=== PATIENT | male | born 1950 | race Caucasian/White ===

== ENCOUNTER 2021-01-10 20:14 | Inpatient (IN) | payer MEDICARE, OTHER ==
[~2021-01-10] VITALS: Ht 182.9 cm; Wt 145.2 kg
[~2021-01-10 20:14] MED LIST: ALBU90OI INH; AMLO5; AMOCLA875; ASPI325; ASPI325 PO; ATEN100; ATEN100 PO; ATOR40TA; AZIT250 PO; Amlodipine Bes2.5 MG PO; BUME1; BUME2; CARV25 PO; CENTRUM SILVER1 EAC2 PO; CLOP75; CLOP75 PO; COREG; CRESTOR PO; FURO80 PO; GLIM4; GLIM4 PO; GLIMEPIRIDE PO; INS70/30I SC; INS70/30PN SC; INSULANPEN SC; ISOMON20; ISOMON20 PO; ISOSORBIDE PO; Isosorbide Mono60 MG; LANTUS; LOSA50; LOSA50 PO; LOSARTAN; LOSHYD PO; Lasix20 MG; METF500; METF500 PO; METF500C; METF500C PO; METFORMIN PO; Nitrostat0.4 MG SL; Norco 5-325 Ta1 EACH PO; POTA10T PO; POTCHL20ER; Percocet 5-3251 EACH PO; RANEXA; RANO500T PO; ROSU10TA; ROSU10TA PO; Ranexa1000 MG; TAMS.4ER PO; TRAM50 PO; VALTURNA
[2021-01-10 20:51] LABS: BASOPHILS ABSOLUTE AUTO 0.04 K/mm3 (0.00-0.23); BASOPHILS PERCENT AUTO 1 % (0-2); EOSINOPHILS ABSOLUTE AUTO 0.03 K/mm3 (0.00-0.68); EOSINOPHILS PERCENT AUTO 1 % (0-6); Hematocrit 34.8 % (37.0-53.0); Hemoglobin 10.6 g/dL (13.5-17.5); IMMATURE GRAN ABSOLUTE AUTO 0.02 K/mm3 (0.00-0.10); IMMATURE GRAN PERCENT AUTO 0 % (0-1); LYMPHOCYTES ABSOLUTE AUTO 0.43 K/mm3 (0.84-5.20); LYMPHOCYTES PERCENT AUTO 8 % (21-46); MONOCYTES ABSOLUTE AUTO 0.59 K/mm3 (0.16-1.47); MONOCYTES PERCENT AUTO 10 % (4-13); Mean Corpuscular HGB 28.6 pg (26.0-34.0); Mean Corpuscular HGB Conc 30.5 g/dL (31.5-36.5); Mean Corpuscular Volume 94 fL (80-100); NEUTROPHILS ABSOLUTE AUTO 4.62 K/mm3 (1.96-9.15); NEUTROPHILS PERCENT AUTO 81 % (41-73); Platelet Count 160 K/mm3 (150-400); RDW Coefficient Variation 14.9 % (11.7-14.2); RDW Standard Deviation 51.6 fL (35.1-46.3); Red Blood Cell Count 3.71 M/mm3 (4.30-5.90); White Blood Cell Count 5.73 K/mm3 (4.00-11.30)
[2021-01-10 21:17] LABS: Alanine Aminotransfer (ALT/SGP 18 U/L (12-78); Albumin, Blood 3.1 g/dL (3.4-5.0); Albumin/Globulin Ratio 0.7 (0.8-1.8); Alk Phos 121 U/L (50-136); Anion Gap 4 mmol/L (6-16); Aspartate Aminotrans (AST/SGOT 17 U/L (12-37); Bilirubin, Total 0.7 mg/dL (0.1-1.0); Blood Urea Nitrogen 19 mg/dL (8-24); Bun/Creatinine Ratio 20.8 (12.0-20.0); CO2, Blood 30 mmol/L (21-32); Chloride, Blood 101 mmol/L (98-108); Creatinine, Blood 0.91 mg/dL (0.60-1.20); Globulin, Blood 4.5 g/dL (2.2-4.0); Glomerular Filtration Rate >60 (60-); Glucose, Blood 177 mg/dL (70-99); Potassium, Blood 4.7 mmol/L (3.5-5.5); Sodium, Blood 135 mmol/L (136-145); Total Protein, Blood 7.6 g/dL (6.4-8.2); Troponin I <0.015 ng/mL (0.000-0.040)
[2021-01-10] MEDS ORDERED: LANOXIN125 MCG PO (21:48)
[2021-01-10] MEDS ORDERED: AMLODIPINE BESYL5 MG PO (21:49)
[2021-01-10] MEDS ORDERED: PLAVIX75 MG PO (21:49)
[2021-01-10] MEDS ORDERED: NITR.4SL SL (21:49)
[2021-01-10] MEDS ORDERED: TAMSULOSIN HCL0.4 M1 PO (21:50)
[2021-01-10] MEDS ORDERED: GLIMEPIRIDE4 MG PO (21:50)
[2021-01-10] MEDS ORDERED: LOSA25 PO (21:50)
[2021-01-10] MEDS ORDERED: Imdur60 MG PO (21:50)
[2021-01-10] MEDS ORDERED: METFORMIN HCL500 M3 PO (21:51)
[2021-01-10] MEDS ORDERED: FINA5 PO (21:51)
[2021-01-10] MEDS ORDERED: METO25ER PO (21:52)
[2021-01-10] MEDS ORDERED: LIPITOR80 MG PO (21:52)
[2021-01-10] MEDS ORDERED: NOVOLIN 70100 UNIT/3 (21:55)
[2021-01-10 22:07] LABS: Source, Urine Catheter
[2021-01-10 22:11] LABS: Bilirubin, Urine Neg (Neg); Blood, Urine Neg (Neg); Glucose Qualitative, Urine Neg (Neg); Ketones, Urine Neg (Neg); Leukocyte Esterase, Urine Neg (Neg); Nitrite, Urine Neg (Neg); Protein, Urine 4+ (Neg); Specific Gravity, Urine 1.025 (1.003-1.022); Urobilinogen, Urine 1+ (Normal)
[2021-01-10 22:19] LABS: Appearance, Urine Hazy (Clear); Color, Urine Yellow (P-Yellow)
[2021-01-10 22:20] LABS: Amorphous Heavy (0-Heavy); Bacteria Rare /hpf; Red Blood Cells, Urine Not Seen /hpf (0-2); Squamous Epithelial Cells Rare /hpf (Few); White Blood Cells, Urine 0-2 /hpf (0-5)
[2021-01-10] MEDS ORDERED: NITROGLYCERIN0.4 M3 (22:55)
[2021-01-10] MEDS ORDERED: [UNRECOGNIZED DRUG - OTHER] PO (22:57)
[2021-01-11] MEDS ORDERED: TRAM50 PO (00:52)
[2021-01-11 02:31] LABS: BASOPHILS ABSOLUTE AUTO 0.03 K/mm3 (0.00-0.23); BASOPHILS PERCENT AUTO 1 % (0-2); EOSINOPHILS ABSOLUTE AUTO 0.03 K/mm3 (0.00-0.68); EOSINOPHILS PERCENT AUTO 1 % (0-6); Hematocrit 34.1 % (37.0-53.0); Hemoglobin 10.6 g/dL (13.5-17.5); IMMATURE GRAN ABSOLUTE AUTO 0.01 K/mm3 (0.00-0.10); IMMATURE GRAN PERCENT AUTO 0 % (0-1); LYMPHOCYTES ABSOLUTE AUTO 0.51 K/mm3 (0.84-5.20); LYMPHOCYTES PERCENT AUTO 9 % (21-46); MONOCYTES ABSOLUTE AUTO 0.63 K/mm3 (0.16-1.47); MONOCYTES PERCENT AUTO 11 % (4-13); Mean Corpuscular HGB 28.9 pg (26.0-34.0); Mean Corpuscular HGB Conc 31.1 g/dL (31.5-36.5); Mean Corpuscular Volume 93 fL (80-100); NEUTROPHILS ABSOLUTE AUTO 4.37 K/mm3 (1.96-9.15); NEUTROPHILS PERCENT AUTO 78 % (41-73); Platelet Count 158 K/mm3 (150-400); RDW Standard Deviation 51.3 fL (35.1-46.3); Red Blood Cell Count 3.67 M/mm3 (4.30-5.90); White Blood Cell Count 5.58 K/mm3 (4.00-11.30)
[2021-01-11 02:53] LABS: Anion Gap 5 mmol/L (6-16); Blood Urea Nitrogen 19 mg/dL (8-24); CO2, Blood 30 mmol/L (21-32); Calcium, Blood 8.9 mg/dL (8.5-10.1); Chloride, Blood 101 mmol/L (98-108); Creatinine, Blood 0.83 mg/dL (0.60-1.20); Glomerular Filtration Rate >60 (60-); Glucose, Blood 184 mg/dL (70-99); Sodium, Blood 136 mmol/L (136-145); Troponin I 0.015 ng/mL (0.000-0.040)
--- NOTE | 2021-01-11 16:01 | NUR ---
REQUEST FOR MEDICAL RECORDS FAXED TO [facility] TODAY AT 15:51, PER DOCTOR SMALL. REQUEST SUBMITTED FOR OP NOTES: CABG, TAVR, AND CARDIAC CATH.
--- NOTE | 2021-01-11 18:27 | NUR ---
PALLIATIVE/HOSPICE: DAUGHTER, TANNER, REQUESTS TO BE PRESENT IF DISCUSSIONS OCCUR.
--- NOTE | 2021-01-11 20:55 | NUR ---
CARDIAC: PATIENT WAS IN CT AND REPORTED CHEST PAIN TO TECH. UPON ARRIVAL BACK TO UNIT VS: BP 82/62 HR PACED WITH BBB AND AFIB 70-80'S TEMP 97.3 RESP 20. PATIENT HAS NO CHEST PAIN AT THIS TIME.
--- NOTE | 2021-01-11 21:27 | NUR ---
CARDIAC: SPOKE WITH BENCH CARPENTER MD, ORDERS TO HOLD ALL DIARETICS TONIGH AND MONITOR BP.
--- NOTE | 2021-01-12 05:36 | NUR ---
SHIFT SUMMARY: PATIENT IS A&OX4, NO REPORTS OF PAIN. BP IS 92/58 AT 0415. LASIX IS HELD THIS MORNING PER MD ORDER TO HOLD DIURETICS FOR HYPOTENTION. ALVAREZ HAS PUT OUT OVER 4650 OF CLEAR YELLOW URINE. UNABLE TO GET WEIGHT THIS AM DUE TO SCALE ON BED IS NOT FUNCTIONING.
[2021-01-12 06:19] LABS: Anion Gap 5 mmol/L (6-16); Blood Urea Nitrogen 17 mg/dL (8-24); Bun/Creatinine Ratio 22.6 (12.0-20.0); CO2, Blood 33 mmol/L (21-32); Calcium, Blood 9.2 mg/dL (8.5-10.1); Chloride, Blood 97 mmol/L (98-108); Creatinine, Blood 0.75 mg/dL (0.60-1.20); Glomerular Filtration Rate >60 (60-); Glucose, Blood 205 mg/dL (70-99); Magnesium, Blood 1.8 mg/dL (1.6-2.4); Potassium, Blood 3.3 mmol/L (3.5-5.5); Sodium, Blood 135 mmol/L (136-145)
--- NOTE | 2021-01-12 18:53 | NUR ---
PACEMAKER: NOTIFIED BY CUSTOMER CARE REPRESENTATIVE OF [place] FOR PACEMAKER SPIKES NOT FIRING IN PROPER PLACEMENT, RECS FOR EKG. EKG COMPLETE. DR BEY NOTIFIED, AND WILL REVIEW EKG IN AM. NO NEW ORDERS.
--- NOTE | 2021-01-13 04:06 | NUR ---
SHIFT SUMMARY- PT. A&OX4, LIFT ASSIST W/2-3 PERSON MAX FOR TURNS. PT. C/O SCROTAL PAIN, MEDICATED 2X DURING THE NIGHT PER EMAR, AND SCROTUM ELEVATED ON PILLOW CASE FOR COMFORT. SCROTUM VERY SWOLLEN. PT. REPORTED MINIMAL RELIEF. PT. HAS SLEPT ON/OFF DURING THE NIGHT W/CPAP IN PLACE. NO APPARENT DISTRESS NOTED. REPOSITIONED FOR COMFORT PRN. ALVAREZ CATHETER PATENT AND DRAINING. OUTPUT OF 3100ML THUS FAR. SYSTOLIC BP'S MAINTAINED IN THE 90'S. TELE CONCERNED LAST NIGHT PT. PACEMAKER HAVING RANDOM SPIKES. DR. BENNETT MADE AWARE. EKG DONE LAST NIGHT PER ORDER. PROVIDER UP TO MED UNIT FOR INTERPRETATION. NO NEW ORDERS RECEIVED. DENIES NEEDS AT THIS TIME. CALL LIGHT WITHIN REACH, SIDE RAILS UPX2, AND BED IN LOW POSITION. WILL CONT TO MONITOR.
[2021-01-13 06:04] LABS: Anion Gap 4 mmol/L (6-16); Blood Urea Nitrogen 16 mg/dL (8-24); Bun/Creatinine Ratio 20.5 (12.0-20.0); CO2, Blood 36 mmol/L (21-32); Calcium, Blood 9.3 mg/dL (8.5-10.1); Chloride, Blood 94 mmol/L (98-108); Creatinine, Blood 0.78 mg/dL (0.60-1.20); Digoxin (Lanoxin) 0.24 ug/mL (0.80-2.00); Glomerular Filtration Rate >60 (60-); Glucose, Blood 241 mg/dL (70-99); Magnesium, Blood 1.5 mg/dL (1.6-2.4); Potassium, Blood 3.2 mmol/L (3.5-5.5); Sodium, Blood 134 mmol/L (136-145)
--- NOTE | 2021-01-13 10:00 | NUR ---
PT C/O CP ON EXERTION, DOES NOT RADIATE TO JAW OR ARM; AND INTERMITTENT. MEDICATED FOR PAIN. GIVEN THE AM MEDS AND DIGOXIN. AT BEDSIDE. PT PACED ON TELE VSS . PT STATED "PAIN OF 4/10, BUT I AM NOT REALLY IN SO MUCH PAIN, THIS SEEMS TO COME AND GO." HE ADDED "EVERYTIME SOMEONE MOVES ME, THEN I WOULD FEEL THE CP, AND IT IS MORE EXERTIONAL AND POSITIONAL." WAS AT BEDSIDE AND THIS RN. INSTRUCTED PT TO CALL RN IF IN SO MUCH PAIN. NO OTHER ORDER AT THIS TIME. EKG WAS DONE YESTERDAY FOR THE SAME REASON AND DID NOT FIND ANYTHING PER . PLAN IS TO DIURESE THE PT.
--- NOTE | 2021-01-13 18:14 | NUR ---
SHIFT SUMMARY PT AOX4; CALLS APPROPRIATELY. PACED ON TELE AND 7L ON 02 AT BASELINE, DENIES CP AFTER THAT ONE EPISODE THIS AM- SEE OTHER NOTE. PT TAKES MEDS WITH WATER. DENIES ANY OTHER DISCOMFORT. PT AND SON WOULD LIKE TO TALK TO TOMORROW. BED IS IN THE LOWEST POSITION AND CALL LIGHT WITHIN REACH
[2021-01-14 05:01] LABS: Anion Gap 2 mmol/L (6-16); Blood Urea Nitrogen 15 mg/dL (8-24); Bun/Creatinine Ratio 21.3 (12.0-20.0); CO2, Blood 41 mmol/L (21-32); Calcium, Blood 9.6 mg/dL (8.5-10.1); Chloride, Blood 89 mmol/L (98-108); Creatinine, Blood 0.71 mg/dL (0.60-1.20); Glomerular Filtration Rate >60 (60-); Glucose, Blood 221 mg/dL (70-99); Magnesium, Blood 1.3 mg/dL (1.6-2.4); Potassium, Blood 3.1 mmol/L (3.5-5.5); Sodium, Blood 132 mmol/L (136-145)
--- NOTE | 2021-01-14 06:35 | NUR ---
SHIFT SUMMARY PT IS A 70 Y/O MALE, ADMITTED FOR ACUTE ON CHRONIC CHF. HE IS A&O X 4, BEDBOUND. EXCORIATION NOTED TO SCROTUM AND PITTING EDEMA IN HIPS AND BLE. PT WAS MEDICATED FOR MILD CHEST PAIN, GROIN AND BLE PAIN WITH PRN TRAMADOL. NO C/O NAUSEA OR SOB. PT IS ON 7L O2 VIA NC AND CPAP WITH 7L BLEED IN, WHICH IS HIS NORMAL HOME DOSE. VITAL SIGNS STABLE. NO ACUTE CHANGES IN PT CONDITION NOTED DURING THE NIGHT. WILL CONTINUE TO MONITOR AND TREAT PER EMAR UNTIL HAND OFF TO DAY SHIFT RN.
--- NOTE | 2021-01-14 16:53 | NUR ---
SHIFT SUMMARY PT AOX4; CALLS APPROPRIATELY. PT IS A LIFT PT. PT WILL GET A PICC LINE FOR POTASSIUM MEDICATION PER TOURIST AGENT. PT IS NOW BACK ON TELE PACED @70S. DENIES CP. PT HAS MULTIPLE PRESSURE SORE ON HIS SCROTUM- CREAM APPLIED AND ELEVATED. PT ALSO HAS REDDENED AREA UNDER BREAST AND ARMPIT- NYSTATIN CREAM APPLIED. PT AND SON CAME BY TO DISCUSSED THE PLAN FOR THE PT AND THEY WOULD LIKE FOR THE PT TO GO HOME INSTEAD OF GOING TO SNF. DISCUSSED PLAN AT BEDSIDE. MEDICATED THE PT FOR PAIN. BED IS IN THE LOWEST POSITION AND CALL LIGHT WITHIN REACH
--- NOTE | 2021-01-14 18:30 | NUR ---
UNABLE TO PLACE PICC. THIS RN REPORTED TO SHERRON CUMMINS RN, THIS PTS NURSE.
[2021-01-15 05:47] LABS: Blood Urea Nitrogen 14 mg/dL (8-24); Bun/Creatinine Ratio 19.8 (12.0-20.0); Calcium, Blood 9.4 mg/dL (8.5-10.1); Chloride, Blood 82 mmol/L (98-108); Creatinine, Blood 0.71 mg/dL (0.60-1.20); Glomerular Filtration Rate >60 (60-); Glucose, Blood 251 mg/dL (70-99); Magnesium, Blood 1.6 mg/dL (1.6-2.4); Potassium, Blood 2.9 mmol/L (3.5-5.5); Sodium, Blood 130 mmol/L (136-145)
[2021-01-15 05:58] LABS: Anion Gap Unable to Calculate mmol/L (6-16)
[2021-01-15 05:59] LABS: CO2, Blood >45 mmol/L (21-32)
--- NOTE | 2021-01-15 06:42 | NUR ---
SHIFT SUMMARY PT IS A 70 Y/O MALE, ADMITTED FOR ACUTE ON CHRONIC CHF. HE IS A&O X 4, BEDBOUND. ALVAREZ IN PLACE, PATENT AND DRAINING. PT WAS MEDICATED FOR BACK, BLE AND GROIN PAIN WITH PRN TRAMADOL. NO C/O NAUSEA OR SOB. PT IS ON 7L VIA CPAP, WHICH IS HIS NORMAL HOME DOSE. VITAL SIGNS STABLE. TELE SHOWED PACED RHYTHM WITH PVC IN THE 70S. PT'S HS DOSE OF IV POTASSIUM WAS HELD DUE TO PT NOT HAVING A PICC LINE, AND ORDER SPECIFYING THAT IT BE GIVEN VIA PICC NOT PERIPHERAL IV. NO OTHER ACUTE CHANGES IN PT CONDITION NOTED DURING THE NIGHT. WILL CONTINUE TO MONITOR AND TREAT PER EMAR UNTIL HAND OFF TO DAY SHIFT RN.
[2021-01-16 05:39] LABS: Blood Urea Nitrogen 14 mg/dL (8-24); Bun/Creatinine Ratio 20.3 (12.0-20.0); Calcium, Blood 9.6 mg/dL (8.5-10.1); Chloride, Blood 76 mmol/L (98-108); Creatinine, Blood 0.69 mg/dL (0.60-1.20); Glomerular Filtration Rate >60 (60-); Glucose, Blood 291 mg/dL (70-99); Magnesium, Blood 2.3 mg/dL (1.6-2.4); Potassium, Blood 3.3 mmol/L (3.5-5.5); Sodium, Blood 127 mmol/L (136-145)
[2021-01-16 05:57] LABS: Anion Gap Unable to Calculate mmol/L (6-16)
[2021-01-16 05:59] LABS: CO2, Blood >45 mmol/L (21-32)
--- NOTE | 2021-01-16 06:06 | NUR ---
SHIFT SUMMARY PATIENT ALERT AND ORIENTED. HAD NO COMPLAINTS OF PAIN OR SHORTNESS OF BREATH. SLEPT WELL OVERNIGHT. NO ACUTE ISSUES NOTED. IVS PATENT AND FLUSHED. BED IN LOWEST POSTIION WITH WHEELS LOCKED AND ALARM ON. CALL LIGHT WITHIN REACH. REPORT GIVEN TO ONCOMING RN.
--- NOTE | 2021-01-16 18:55 | NUR ---
ASSUMED CARE RECEIVED REPORT FROM MARIA L ALVARENGA. PT RESTING, IN NAD. NO ACUTE NEEDS ASSESSED AT THIS TIME. CALL LIGHT, POSSESSIONS IN REACH, BED IN LOW AND LOCKED POSITION.
--- NOTE | 2021-01-16 19:22 | NUR ---
NO ACUTE CHANGES NOTED THIS SHIFT, PT IS BEING DIURESED WITH IV LASIX 60MG TID. ELECTROLYTES MONITORED CLOSELY. ALVAREZ CATH IN PLACE. CBG STARTED THIS AFERNOON, FIRST BLOOD SUGAR WAAS 315, COVERED PER ORDERED SLIDING SCALE. CALL STORM IN REACH AND PT USES APPROPRIATELY. WILL CONTINUE TO MONITOR REPORT TO ONCOMING RN
--- NOTE | 2021-01-17 04:26 | NUR ---
MENTAL HEALTH PROGRAM MANAGER SUMMARY PT RESTING, IN NAD. NO ACUTE CHANGES TO REPORT OVERNIGHT, SLEPT T/O. VS REVIEWED,WNL; O2 SATS >92% ON 5L/NC OR CPAP. PT DENIES SOB, DYSPNEA. PT REPORTED MINIMAL C/O CP. PAIN MANAGED WITH MEDS PER EMAR. COMPLIANT WITH FLUID RESTRICTION. DENIES NEEDS AT THIS TIME. CALL LIGHT, POSSESSIONS IN REACH, BED IN LOW AND LOCKED POSITION. WILL CONTINUE TO PROVIDE CARE NEEDED UNTIL REPORT GIVEN TO ONCOMING RN.
[2021-01-17 05:44] LABS: Blood Urea Nitrogen 17 mg/dL (8-24); Calcium, Blood 9.7 mg/dL (8.5-10.1); Chloride, Blood 74 mmol/L (98-108); Creatinine, Blood 0.74 mg/dL (0.60-1.20); Glomerular Filtration Rate >60 (60-); Glucose, Blood 228 mg/dL (70-99); Magnesium, Blood 1.9 mg/dL (1.6-2.4); Potassium, Blood 3.3 mmol/L (3.5-5.5); Sodium, Blood 126 mmol/L (136-145)
[2021-01-17 05:45] LABS: Anion Gap Unable to Calculate mmol/L (6-16)
[2021-01-17 05:46] LABS: CO2, Blood >45 mmol/L (21-32)
--- NOTE | 2021-01-17 19:25 | NUR ---
PT RESTING IN BED AFTER PM MEDICATION ADMIN AND DINNER, ALERT AND ORIENTED X4. PT WAS NOT ABLE TO TOLERATE PT/UP IN CHAIR TODAY DUE TO JOANA EDEMA. PT PAIN TREATED PER EMAR WITH FAMILY AT BEDSIDE. FC AND IV WNL. BED IN LOW POSITION AND CALL LIGHT WITHIN REACH. STAFF WILL CONTINUE TO MONITOR.
--- NOTE | 2021-01-18 06:51 | NUR ---
SHIFT SUMMARY PT IS A 70 Y/O MALE, ADMITTED FOR ACUTE ON CHRONIC CHF. HE IS A&O X 3, THOUGH REPORTED HE WAS "FEELING A LITTLE CONFUSED" DURING THE NIGHT. PT IS BEDREST LIFT PT. HE WAS MEDICATED FOR TRANSIENT CHEST PAIN AND BLE PAIN WITH PRN TRAMADOL. NO C/O NAUSEA OR SOB. VITAL SIGNS STABLE. TELE SHOWED AFIB IN THE 80S. ALVAREZ IN PLACE FOR RETENTION AND STRICT I&O, PATENT AND DRAINING. NO ACUTE CHANGES IN PT CONDITION NOTED DURING THE NIGHT. WILL CONTINUE TO MONITOR AND TREAT PER EMAR UNTIL HAND OFF TO DAY SHIFT RN.
[2021-01-18 08:28] LABS: Blood Urea Nitrogen 18 mg/dL (8-24); Bun/Creatinine Ratio 27.2 (12.0-20.0); Calcium, Blood 9.8 mg/dL (8.5-10.1); Chloride, Blood 74 mmol/L (98-108); Creatinine, Blood 0.66 mg/dL (0.60-1.20); Glomerular Filtration Rate >60 (60-); Glucose, Blood 170 mg/dL (70-99); Magnesium, Blood 2.1 mg/dL (1.6-2.4); Potassium, Blood 3.6 mmol/L (3.5-5.5); Sodium, Blood 126 mmol/L (136-145)
[2021-01-18 08:32] LABS: Anion Gap Unable to Calculate mmol/L (6-16)
[2021-01-18 08:34] LABS: CO2, Blood >45 mmol/L (21-32)
--- NOTE | 2021-01-18 17:14 | NUR ---
SUMMARY PT RESTING QUIETLY IN BED, IS VISITING AT THE BEDSIDE, PT HAS BEEN PLEASANT AND COOPERATIVE WITH CARE, UP WITH THERAPY TO THE CHAIR, USING THE LIFT, MED PER EMAR FOR PAIN, ALVAREZ PATENT AND DRAINING WELL, VSS, NO ACUTE CHANGES, WILL CONTINUE TO MONITOR
--- NOTE | 2021-01-19 05:56 | NUR ---
SHIFT SUMMARY PT IS A 70 Y/O MALE, ADMITTED FOR ACUTE ON CHRONIC CHF. HE IS A&O X 3, FORGETFUL AT TIMES, BEDREST/LIFT PT. PT SLEPT WELL THROUGH THE NIGHT, NO C/O ACUTE PAIN, NAUSEA OR SOB. PER PRINTER'S DEVIL, PT DID HAVE A BRIEF EPISODE OF POSSIBLE V-TACH OR SINUS TACH AT 0241 THAT LASTED FOR LESS THAN A MINUTE BEFORE SLOWING TO NSR. PT THEN CONVERTED FROM NSR TO AFIB IN THE 90S. VITAL SIGNS OTHERWISE STABLE. PT IS ON 5L OF O2 VIA NC AND CPAP AT NIGHT. NO OTHER ACUTE CHANGES IN PT CONDITION NOTED. WILL CONTINUE TO MONITOR AND TREAT PER EMAR UNTIL HAND OFF TO DAY SHIFT RN.
[2021-01-19 06:06] LABS: Blood Urea Nitrogen 23 mg/dL (8-24); Bun/Creatinine Ratio 28.3 (12.0-20.0); Calcium, Blood 9.5 mg/dL (8.5-10.1); Chloride, Blood 74 mmol/L (98-108); Creatinine, Blood 0.81 mg/dL (0.60-1.20); Glomerular Filtration Rate >60 (60-); Glucose, Blood 224 mg/dL (70-99); Magnesium, Blood 2.8 mg/dL (1.6-2.4); Potassium, Blood 4.1 mmol/L (3.5-5.5); Sodium, Blood 124 mmol/L (136-145)
[2021-01-19 06:15] LABS: Anion Gap Unable to Calculate mmol/L (6-16)
[2021-01-19 06:17] LABS: CO2, Blood >45 mmol/L (21-32)
--- NOTE | 2021-01-19 17:24 | NUR ---
SHIFT SUMMARY PT AXO TO SELF, FAMILY AND FOLLOWING DIRECTIONS THOUGH FORGETFUL AND FIXATES ON THINGS. PT HAS BEEN LOOKING FOR A SECONDARY REMOTE FOR HIS BED. THIS NURSE ORIENTED HIM TO THE CALL LIGHT, PHONE, REMOTE FOR THE BED AND TELEMETRY BOX BUT PT INSISTS THAT THERE IS ANOTHER ONE THAT WE CANNOT FIND. PT HAS ALSO BEEN RESISTENT TO WORKING WITH PHYSICAL THERAPY, SEE NOTE. VSS. PT REPOSITIONED WITH LIFT. WEIGHT THIS SHIFT WAS 150.[address] RUNNING TKO. RT COMPLAINED OF PAIN WITH MOVEMENT TO SCROTUM. ALVAREZ IN PLACE DRAINING JENNIFER URINE. 700ML INPUT SO FAR THIS SHIFT, 1700ML OUTPUT FOR THIS SHIFT. BED IN LOW POSITION, CALL LIGHT WITHIN REACH. SEE CBG THIS SHIFT, MEDICATED PER EMAR. 5L VIA NC. PT ON TELE, PACED AT 76. PT ALSO HAD BED BATH THIS SHIFT.
--- NOTE | 2021-01-19 18:19 | NUR ---
THIS NURSE WENT TO CLEAR THE IV PUMP AT END OF SHIFT WHEN TOTAL VOLUME WAS 2156 ML. THIS TOTAL WAS NOT GIVEN ON THIS SHIFT ALONE. THIS NURSE GAVE 120 ML RUNNING NS AT TKO THE WHOLE SHIFT BUT OTHER THAN THAT THOSE FLUIDS WERE GIVEN ON PREVIOUS SHIFTS.
--- NOTE | 2021-01-20 04:08 | NUR ---
SHIFT SUMMARY ADMITTED FOR ACUTE ON CHRONIC CHF. FULL CODE. PLAN IS TO [facility]. CARDIOLOGY CONSULTED AND HAS SIGNED OFF UNTIL OUTPT VISIT. HE IS TO DC W/HH WHEN STABLE. TELEMETRY: AFIB/PACED W/BBB @ [address] FOR STRICT I&O'S. MAGNESIUM HELD AT HOSPITALIST'S REQUEST MG++ WAS 2.8. AWAITING THIS MORNING'S LABS. 2000 ML FLUID RESTRICTION. CELLULITIS IN LEFT ARMPIT AND ON LEFT CHEST. SCROTUM IS EXCORIATED AND SWOLLEN. EXTENSIVE CARDIAC HX:9 PR'S, STENTS, OPEN HEART SURGERIES.
[2021-01-20 05:28] LABS: Blood Urea Nitrogen 27 mg/dL (8-24); Calcium, Blood 9.5 mg/dL (8.5-10.1); Chloride, Blood 75 mmol/L (98-108); Creatinine, Blood 0.82 mg/dL (0.60-1.20); Glomerular Filtration Rate >60 (60-); Glucose, Blood 236 mg/dL (70-99); Potassium, Blood 3.9 mmol/L (3.5-5.5); Sodium, Blood 123 mmol/L (136-145)
[2021-01-20 05:40] LABS: Anion Gap Unable to Calculate mmol/L (6-16)
[2021-01-20 05:42] LABS: CO2, Blood >45 mmol/L (21-32)
--- NOTE | 2021-01-20 19:05 | NUR ---
ASSUMED CARE RECEIVED REPORT FROM MARIA L HILL. PT RESTING, IN NAD. CPAP IN PLACE. PT DENIES NEEDS AT THIS TIME. CALL LIGHT, POSSESSIONS IN REACH, BED IN LOW AND LOCKED POSITIION WITH ALARMS ON.
--- NOTE | 2021-01-21 04:51 | NUR ---
BUNDLER SUMMARY PT RESTING, IN NAD. SLEPT ON AND OFF T/O NIGHT. WORE CPAP T/O NIGHT, TOLERATED WELL; NO C/O SOB, DYSPNEA. NO CARDIAC EVENTS NOTED OVERNIGHT; DENIES CP/PRESSURE/SOB. ALVAREZ CATHETER PATENT AND DRAINING JENNIFER YELLOW URINE TO GRAVITY, TUBING FREE OF KINKS. NO ACUTE NEEDS ASSESSED AT THIS TIME. CALL LIGHT, POSSESSIONS IN REACH, BED IN LOW AND LOCKED POSITION. WILL CONTINUE TO PROVIDE CARE UNTIL REPORT GIVEN TO ONCOMING RN.
[2021-01-21 11:58] LABS: Anion Gap 3 mmol/L (6-16); Blood Urea Nitrogen 30 mg/dL (8-24); Bun/Creatinine Ratio 34.5 (12.0-20.0); CO2, Blood 43 mmol/L (21-32); Calcium, Blood 9.4 mg/dL (8.5-10.1); Chloride, Blood 78 mmol/L (98-108); Creatinine, Blood 0.87 mg/dL (0.60-1.20); Glomerular Filtration Rate >60 (60-); Glucose, Blood 295 mg/dL (70-99); Potassium, Blood 3.8 mmol/L (3.5-5.5); Sodium, Blood 124 mmol/L (136-145)
--- NOTE | 2021-01-21 18:39 | NUR ---
SHIFT SUMMARY: NO ACUTE EVENTS. NO EVENTS ON TELEMETRY, AFIB 70'S. A&O X 3, BUT WAS SLIGHTLY DISORIENTED UPON WAKING THIS AFTERNOON FROM A LONG NAP, HAS SINCE RESOLVED. ALVAREZ DRAINING ADEQUATE URINE. ON O2 @ 7 L/MIN NC, HUMIDIFIED AND CPAP AT HS. GENERALIZED EDEMA THROUGHOUT INCLUDING SCROTUM. COMPLIANT WITH 2 LITER FLUID RESTRICTION. VISITED THIS AFTERNOON.
--- NOTE | 2021-01-21 19:00 | NUR ---
ASSUMED CARE RECEIVED REPORT FROM MARIA L CARR. PT RESTING, IN NAD. AT THE BEDSIDE. PT DENIES NEEDS AT THIS TIME. CALL LIGHT, POSSESSIONS IN REACH.
--- NOTE | 2021-01-21 21:40 | NUR ---
THIS NURSE NOTIFIED BY PCU EXCEL EXPERT OF PT HAVING A 9 BEAT RUN OF VTACH. PT REPORTS MILD CP, STATES HE FELT MILDLY DIZZY, BUT HIS SX ARE RESOLVING AT THIS POINT. CONTINUE TO MONITOR.
--- NOTE | 2021-01-21 22:40 | NUR ---
THIS RN NOTIFIED BY EXCHANGE CLERK OF PT HAVING INCREASED AMOUNT OF TRIGEMINAL PVCS. DENIES PREVIOUS EPISODES OF VTACH OR INCREASED PVCS DURING THE PREVIOUS SHIFT. PT STATES HE'S ABLE TO FEEL WHEN THE PVCS ARE OCCURRING. CANAL BOAT OPERATORBELINDA NOTIFIED OF SITUATION. WILL OBTAIN PRN EKG ORDERED.
--- NOTE | 2021-01-22 00:02 | NUR ---
DR. BEY NOTIFIED OF PT'S 9 BEAT RUN OF VTACH, AND SUBSEQUENT EPISODES OF RECURRING PVCS WELL INTERVENTIONS PERFORMED. ORDERS RECEIVED TO CHECK PT'S MAGNESIUM AND POTASSIUM. CONTINUE TO MONITOR.
[2021-01-22 00:38] LABS: Magnesium, Blood 1.6 mg/dL (1.6-2.4); Potassium, Blood 4.1 mmol/L (3.5-5.5)
--- NOTE | 2021-01-22 05:03 | NUR ---
BOOM PUMP OPERATOR SUMMARY PT A&OX 3, PLEASANT AND COOPERATIVE WITH CARES. HAS BEEN SLEEPING ON AND OFF T/O NIGHT. NO FURTHER CARDIAC EVENTS OR PT C/O CP REPORTED AT THIS TIME, SEE PREVIOUS NOTES. VS REVIEWED, O2 SATS AND HR WNL. CPAP IN PLACE WITH 7L/O2 BLEED IN. NO OTHER ACUTE EVENTS OVERNIGHT. DENIES NEEDS AT THIS TIME. CALL LIGHT, POSSESSIONS IN REACH, BED IN LOW AND LOCKED POSITION. WILL REPORT OFF TO ONCOMING RN.
[2021-01-22 05:04] LABS: Hematocrit 30.2 % (37.0-53.0); Hemoglobin 9.7 g/dL (13.5-17.5); Mean Corpuscular HGB 28.6 pg (26.0-34.0); Mean Corpuscular HGB Conc 32.1 g/dL (31.5-36.5); Mean Corpuscular Volume 89 fL (80-100); Mean Platelet Volume 12.1 fL (9.1-12.4); Platelet Count 150 K/mm3 (150-400); RDW Coefficient Variation 14.3 % (11.7-14.2); RDW Standard Deviation 46.2 fL (35.1-46.3); Red Blood Cell Count 3.39 M/mm3 (4.30-5.90); White Blood Cell Count 6.15 K/mm3 (4.00-11.30)
[2021-01-22 05:27] LABS: Anion Gap 3 mmol/L (6-16); Blood Urea Nitrogen 35 mg/dL (8-24); Bun/Creatinine Ratio 42.7 (12.0-20.0); CO2, Blood 41 mmol/L (21-32); Calcium, Blood 9.2 mg/dL (8.5-10.1); Chloride, Blood 81 mmol/L (98-108); Creatinine, Blood 0.82 mg/dL (0.60-1.20); Glomerular Filtration Rate >60 (60-); Glucose, Blood 192 mg/dL (70-99); Potassium, Blood 4.3 mmol/L (3.5-5.5); Sodium, Blood 125 mmol/L (136-145)
--- NOTE | 2021-01-22 18:31 | NUR ---
PT RESTING IN BED AFTER DINNER AND PM MEDICATION ADMIN. PT REMAINS ALERT AND ORIENTED X4, AT BEDSIDE, IV SL AND WNL, NO COMPLAINTS CHEST PAIN OR SOB THIS SHIFT. GENERALIZED PAIN TREATED PER EMAR. PT WORKED WITH PT THIS SHIFT AND WAS HELPED TO THE BEDSIDE CAMODE FROM JOE WITHOUT ISSUE. PT PLANS TO DO THE SAME TOMORROW AND HOPES FOR MORE PROGRESS. PT CALL LIGHT WITHIN REACH AND BED IN LOW POSITION. STAFF WILL CONT. TO MONITOR.
--- NOTE | 2021-01-23 03:04 | NUR ---
GREEN END DEPARTMENT SUPERVISOR SUMMARY HAS BEEN RESTING WITH FEW INTERRUPTIONS SINCE HS. BEFORE HS, DURING ASSESSMENT, VOICED HE ALWAYS HAS CHEST PAIN, BUT IT WAS 4/10, AND FELT IT WAS HIS USUAL BASE PAIN LEVEL. TELE IN USE, PACED IN THE 70'S. MONITORING FLUID INTAKE. NOTED SLIGHT BLEEDING AND TENDERNESSS OF GROIN SKIN. CLEANED AND OINTMENT APPLIED. REPOSITIONED. CALL LIGHT IN REACH. PLACED ON CPAP AT HS, CONT PULSE OX IN THE 90'S. NO C/O VOICED AND NO NOTED ACUTE DISTRESS. CALL LIGHT IN REACH
[2021-01-23 05:34] LABS: Anion Gap 2 mmol/L (6-16); Blood Urea Nitrogen 39 mg/dL (8-24); Bun/Creatinine Ratio 42.8 (12.0-20.0); CO2, Blood 40 mmol/L (21-32); Calcium, Blood 9.3 mg/dL (8.5-10.1); Chloride, Blood 85 mmol/L (98-108); Creatinine, Blood 0.91 mg/dL (0.60-1.20); Glomerular Filtration Rate >60 (60-); Glucose, Blood 169 mg/dL (70-99); Potassium, Blood 3.8 mmol/L (3.5-5.5); Sodium, Blood 127 mmol/L (136-145)
--- NOTE | 2021-01-23 19:01 | NUR ---
SHIFT SUMMARY- PT IS A/I, PLESANT AND COOPERATIVE. HE IS EATING AND DRINKING WELL. HE HAS A ALVAREZ IN PLACE AND IT IS DRAINING WELL. HE WORKED WITH PT TODAY AND WAS UP TO THE CHAIR. HIS BED IS IN THE LOW POSITION AND CALL LIGHT IS WITHIN REACH.
--- NOTE | 2021-01-23 19:59 | NUR ---
WAS AWAKE WHEN STAFF ENTERED ROOM, VOICED DESIRES TO REPOSITION. (2) STAFF REPOSITIONED HIM. ALVAREZ DRAINING. SPEIALTY BED IN USE. CALL LIGHT IN REACH. BILAT LEGS ELEVATED ON PAILOWS. VOICED FELT BETTER.
--- NOTE | 2021-01-24 03:45 | NUR ---
BARBER SUMMARY HAS BEEN RESTING QUIETLY WITH O2/CPAP SINCE HS WITH CONT PULSE OX. O2 SATS REMAIN IN THE 90'S BUT NOTED DROP OF HR INTO THE 30'S X 1. NO NOTED DISTRESS, AND WAS BACK INTO THE 70'S SOON AFTER. ALVAREZ DRAINING CLEAR JENNIFER. CALL LIGHT IN REACH. WILL CONTINUE TO MONITOR
--- NOTE | 2021-01-24 18:07 | NUR ---
SHIFT SUMMARY NO ACUTE CHANGES T/O SHIFT, A&O, CALM AND COOPERATIVE c CARE, DENIES ANY DISTRESS, VSS. UP TO CHAIR FOR GOOD PORTION OF DAY USING ALLI LIFT. WORKED WITH PT. POSSIBLE DISCHARGE TOMORROW c [facility]. ALVAREZ PATENT AND DRAINING. GOOD ORAL INTAKE, FLUID RESTRICTION MAINTAINED. SKIN CARE PERFORMED, CREAMS APPLIED TO NEEDED REDDENED AREAS. WOUNDS ON SCROTUM STILL OOZING SMALL AMOUNT OF BLOOD.
--- NOTE | 2021-01-25 05:27 | NUR ---
SHIFT SUMMARY PATIENT ALERT AND ORIENTED. WAS MEDICATED PER EMAR FOR PAIN. NO COMPLAINTS OF SHORTNESS OF BREATH. NO ACUTE ISSUES NOTED OVERNIGHT. IV PATENT AND FLUSHED. BED IN LOWEST POSITION WITH WHEELS LOCKED AND ALARM ON. CALL LIGHT WITHIN REACH. REPORT GIVEN TO ONCOMING RN.
[2021-01-25 05:32] LABS: Anion Gap 4 mmol/L (6-16); Blood Urea Nitrogen 38 mg/dL (8-24); Bun/Creatinine Ratio 47.9 (12.0-20.0); CO2, Blood 38 mmol/L (21-32); Calcium, Blood 9.5 mg/dL (8.5-10.1); Chloride, Blood 89 mmol/L (98-108); Creatinine, Blood 0.79 mg/dL (0.60-1.20); Glomerular Filtration Rate >60 (60-); Glucose, Blood 143 mg/dL (70-99); Potassium, Blood 3.6 mmol/L (3.5-5.5); Sodium, Blood 131 mmol/L (136-145)
[2021-01-25] MEDS ORDERED: BUME2 PO (10:23)
[2021-01-25] MEDS ORDERED: ACET325 PO (10:23)
[2021-01-25] MEDS ORDERED: POTCHL20ER PO (10:24)
[2021-01-25] MEDS ORDERED: INSULANPEN SC (10:24)
[2021-01-25] MEDS ORDERED: NYSTATIN15 GM TOP (10:24)
[2021-01-25] MEDS ORDERED: XARELTO20 MG PO (10:24)
[2021-01-25] MEDS ORDERED: SPIR25 PO (10:25)
[2021-01-25] MEDS ORDERED: NASAL SPRAY88 ML (10:25)
--- NOTE | 2021-01-25 15:29 | NUR ---
DISCHARGE SUMMARY PT DISCHARGED @ APPROX 1515 VIA WHEELCHAIR TO HOME c [facility]. DISCHARGE INSTRUCTIONS REVIEWED c PT AND WHO WAS AT BEDSIDE. NEEDED RX FAXED TO PHARMACY. IV REMOVED AND SITE APPEARED WNL. PT SENT HOME c ALVAREZ IN PLACE PER ORDERS. PT STATED HE HAD ALL OF HIS BELONGINGS AT THIS TIME.
== END 2021-01-25 15:08 | disposition home health service (06) | DRG 291 ==
LOC: ER 20:14 → MEDS 21:57
PROVIDERS: Internal Medicine; Internal Medicine Cardiovascular Disease; Physician Assistant; ADMIT Family Medicine
DX: I11.0 Hypertensive heart disease with heart failure (principal); J96.21 Acute and chronic respiratory failure with hypoxia; Z68.42 Body mass index [BMI] 45.0-49.9, adult; I48.19 Other persistent atrial fibrillation; E87.1 Hypo-osmolality and hyponatremia; L03.112 Cellulitis of left axilla; E87.3 Alkalosis; I50.33 Acute on chronic diastolic (congestive) heart failure; E87.6 Hypokalemia; E83.42 Hypomagnesemia; T50.2X5A Adverse effect of carbonic-anhydrase inhibitors, benzothiadiazides and other diuretics, initial encounter; Z86.16 Personal history of COVID-19; E66.01 Morbid (severe) obesity due to excess calories; E78.5 Hyperlipidemia, unspecified; E11.9 Type 2 diabetes mellitus without complications; G47.33 Obstructive sleep apnea (adult) (pediatric); I25.10 Atherosclerotic heart disease of native coronary artery without angina pectoris; Z74.09 Other reduced mobility; I25.5 Ischemic cardiomyopathy; Z53.20 Procedure and treatment not carried out because of patient's decision for unspecified reasons; I27.20 Pulmonary hypertension, unspecified; I25.2 Old myocardial infarction; Z95.1 Presence of aortocoronary bypass graft; Z90.49 Acquired absence of other specified parts of digestive tract; Z90.89 Acquired absence of other organs; Z95.5 Presence of coronary angioplasty implant and graft; Z95.0 Presence of cardiac pacemaker; Z88.8 Allergy status to other drugs, medicaments and biological substances; Z79.4 Long term (current) use of insulin; Z79.02 Long term (current) use of antithrombotics/antiplatelets; Z95.2 Presence of prosthetic heart valve; Z79.899 Other long term (current) drug therapy; Z99.81 Dependence on supplemental oxygen
CPT/HCPCS: 36415; 51702; 71045; 71046; 71260; 80048; 80053; 80162; 81001; 82947; 83036; 83735; 83880; 84132; 84484; 85025; 85027; 93005; 93010; 94760; 94761; 94762; 96374-59; 97110; 97163; 97166; 97530; 97535; 99285-25; A9270; C8929; J0690; J1650; J1815; J1940; J3010; J3475; J3480; J7050; Q9957; Q9967

== ENCOUNTER → 2021-02-08 | Outpatient (CLI) | payer MEDICARE, OTHER ==
[~2021-02-08] MED LIST changes: +ACET325 PO; +AMLODIPINE BESYL5 MG PO; +BUME2 PO; +FINA5 PO; +GLIMEPIRIDE4 MG PO; +Imdur60 MG PO; +LANOXIN125 MCG PO; +LIPITOR80 MG PO; +LOSA25 PO; +METFORMIN HCL500 M3 PO; +METO25ER PO; +NASAL SPRAY88 ML; +NITR.4SL SL; +NITROGLYCERIN0.4 M3; +NOVOLIN 70100 UNIT/3; +NYSTATIN15 GM TOP; +PLAVIX75 MG PO; +POTCHL20ER PO; +SPIR25 PO; +TAMSULOSIN HCL0.4 M1 PO; +XARELTO20 MG PO; +[UNRECOGNIZED DRUG - OTHER] PO
[2021-02-08 19:23] LABS: BASOPHILS ABSOLUTE AUTO 0.06 K/mm3 (0.00-0.23); BASOPHILS PERCENT AUTO 1 % (0-2); EOSINOPHILS ABSOLUTE AUTO 0.12 K/mm3 (0.00-0.68); EOSINOPHILS PERCENT AUTO 2 % (0-6); Hematocrit 34.1 % (37.0-53.0); Hemoglobin 11.1 g/dL (13.5-17.5); IMMATURE GRAN ABSOLUTE AUTO 0.02 K/mm3 (0.00-0.10); IMMATURE GRAN PERCENT AUTO 0 % (0-1); LYMPHOCYTES ABSOLUTE AUTO 1.13 K/mm3 (0.84-5.20); LYMPHOCYTES PERCENT AUTO 15 % (21-46); MONOCYTES ABSOLUTE AUTO 0.78 K/mm3 (0.16-1.47); MONOCYTES PERCENT AUTO 10 % (4-13); Mean Corpuscular HGB 28.7 pg (26.0-34.0); Mean Corpuscular HGB Conc 32.6 g/dL (31.5-36.5); Mean Corpuscular Volume 88 fL (80-100); Mean Platelet Volume 12.2 fL (9.1-12.4); NEUTROPHILS ABSOLUTE AUTO 5.38 K/mm3 (1.96-9.15); NEUTROPHILS PERCENT AUTO 72 % (41-73); Platelet Count 200 K/mm3 (150-400); RDW Coefficient Variation 14.4 % (11.7-14.2); RDW Standard Deviation 46.4 fL (35.1-46.3); Red Blood Cell Count 3.87 M/mm3 (4.30-5.90); White Blood Cell Count 7.49 K/mm3 (4.00-11.30)
[2021-02-08 20:01] LABS: Alanine Aminotransfer (ALT/SGP 27 U/L (12-78); Albumin, Blood 3.7 g/dL (3.4-5.0); Albumin/Globulin Ratio 0.7 (0.8-1.8); Alk Phos 94 U/L (50-136); Anion Gap 5 mmol/L (6-16); Aspartate Aminotrans (AST/SGOT 23 U/L (12-37); Bilirubin, Total 0.8 mg/dL (0.1-1.0); Blood Urea Nitrogen 47 mg/dL (8-24); Bun/Creatinine Ratio 58.2 (12.0-20.0); CO2, Blood 34 mmol/L (21-32); Calcium, Blood 9.7 mg/dL (8.5-10.1); Chloride, Blood 91 mmol/L (98-108); Creatinine, Blood 0.81 mg/dL (0.60-1.20); Glomerular Filtration Rate >60 (60-); Glucose, Blood 386 mg/dL (70-99); Potassium, Blood 3.6 mmol/L (3.5-5.5); Sodium, Blood 130 mmol/L (136-145); Total Protein, Blood 8.7 g/dL (6.4-8.2)
[2021-02-08 20:13] LABS: Digoxin (Lanoxin) 0.34 ug/mL (0.80-2.00)
== END | disposition home or self-care (01) ==
LOC: LAB 17:09 → LAB SHORT 17:09
PROVIDERS: Internal Medicine
DX: I50.9 Heart failure, unspecified (principal); E11.9 Type 2 diabetes mellitus without complications
CPT/HCPCS: 80053; 80162; 83036; 85025